=== PATIENT | female | born 1995 | race Caucasian/White ===

== ENCOUNTER 2017-03-03 02:24 | Emergency (ER) | payer OTHER ==
--- NOTE | ~2017-03-03 | ER ---
[facility] AGE[facility] 22 Y [address] ROOM: [place] [address] LOCATION: [facility] ADMIT DATE: 03/03/2017 ER/Outpatient Report DISCHARGE DATE: FAMILY PHYSICIAN: Walter Burnette MD ATTENDING PHYSICIAN: Walter Yanez Time of Arrival: 0223 hours. Time of Evaluation: 0223 hours. CHIEF COMPLAINT: Suicidal ideation. HISTORY OF PRESENT ILLNESS: The patient is a 22-year-old female, who presents to the emergency department today with a chief complaint of suicidal ideation. She reports she does not want to be here anymore. She reports she is having issues with the boyfriend. She attempted to cut her throat with a knife, but the knife was not sharp enough. She did take 2 Wellbutrin and 2 Vistaril as well as 1 Xanax to try to feel better. She did not take any more than that. She does report she feels depressed. Denies any visual or auditory hallucinations. The patient also did drink some alcohol. Denies any pain. PAST MEDICAL HISTORY: Anxiety, depression, prior suicidal attempt. PAST SURGICAL HISTORY: None. SOCIAL HISTORY: The patient smokes, occasionally drinks alcohol, denies any illicit drug use. ALLERGIES: NO KNOWN DRUG ALLERGIES. MEDICATIONS: Please see list. PRIMARY CARE DOCTOR: Dr. Walter Burnette. REVIEW OF SYSTEMS: All systems are reviewed by myself and are negative with the exception of those discussed in the HPI and past medical history. PHYSICAL EXAMINATION: [facility] AGE: 22 Y [address] ROOM: [place] [address] LOCATION: [facility] ADMIT DATE: 03/03/2017 ER/Outpatient Report DISCHARGE DATE: FAMILY PHYSICIAN: Walter Burnette MD ATTENDING PHYSICIAN: Walter Yanez VITAL SIGNS: Weight 91.8 kg, blood pressure 134/99, pulse 105, respiratory rate 24, temperature 98.3, oxygen saturation 98% on room air. GENERAL: The patient is a 22-year-old female, who appears stated age, is tearful, has poor eye contact. HEENT: Normocephalic, atraumatic. Pupils are equal, round, and reactive to light and accommodation. Extraocular motions are intact. Nares are patent bilaterally. Mucous membranes moist. NECK: Supple. The patient does have multiple superficial abrasions to the anterior neck. CARDIOVASCULAR: Tachycardic. No murmurs, rubs, or gallops. LUNGS: Hyperventilating. No wheezes, rales, or rhonchi. ABDOMEN: Soft, nontender, and nondistended. No rebound, rigidity, or guarding. MUSCULOSKELETAL: The patient moves all 4 extremities. SKIN: Warm and dry. There are no rashes or lesions noted. LABORATORY DATA AND X-RAYS: CBC is unremarkable. CMP is unremarkable except for potassium 3.3. LFTs are normal. Alcohol is 0.179. Acetaminophen is less than 2. Salicylate is less than 2.8. TSH is 4.95. Urinalysis shows 100 leukocyte esterase, 5-10 wbc's. Urine hCG is negative. IMPRESSION: 1. Suicidal ideation. 2. Medical clearance. 3. Initial visit. EMERGENCY DEPARTMENT COURSE: The patient was brought back to the examination room. Seen and evaluated by myself. Laboratory analysis and imaging are obtained as described above. The patient is suicidal. She is under [facility] custody by [facility]. The patient will be transferred to [facility] for further psychiatric care in stable condition. DO RACHEL GIBSON/tannerl /[id number] d: 03/03/17 0405 t: 03/05/17 0643, OUTPATIENT REPORT
[~2017-03-03 02:24] MED LIST: VISTARIL50 MG PO; WELLBUTRIN XL300 M1 PO; ZOLOFT50 M1 PO
[2017-03-03 02:46] LABS: BASOPHIL % 0.4 %; EOSINOPHIL # 0.3 K/uL (0.0-0.5); EOSINOPHIL % 3.1 %; HEMATOCRIT 42.6 % (33.0-46.0); HEMOGLOBIN 14.3 g/dL (11.0-15.0); IMMATURE GRANULOCYTE % 0.1 %; LYMPHOCYTE # 3.3 K/uL (0.8-4.0); LYMPHOCYTE % 35.7 %; MCH 31.2 pg (27.0-34.0); MCHC 33.6 gm/dL (32.0-36.5); MONOCYTE # 0.9 K/uL (0.0-1.0); MONOCYTE % 9.2 %; MPV 9.8 fl (9.4-12.4); NEUTROPHIL # (ANC) 4.8 K/uL (1.8-7.8); NEUTROPHIL % 51.5 %; NRBC % 0 /100WBC (0-0.00); PLATELET COUNT 185 K/uL (150-450); RBC 4.58 M/uL (3.50-5.00); RDW-CV 12.5 % (11.9-14.6); WBC 9.3 K/uL (4.0-11.0)
[2017-03-03 02:47] LABS: BILIRUBIN URINE NEGATIVE (NEGATIVE); BLOOD URINE NEGATIVE /UL (NEGATIVE); COLOR URINE COLORLESS (YELLOW); GLUCOSE URINE NEGATIVE (NEGATIVE); KETONE URINE NEGATIVE (NEGATIVE); LEUKOCYTES URINE 100 /UL (NEGATIVE); NITRITE URINE NEGATIVE (NEGATIVE); PROTEIN URINE NEGATIVE (NEGATIVE); TURBIDITY URINE CLEAR (CLEAR); UROBILINOGEN URINE NORMAL (NORMAL)
[2017-03-03 02:58] LABS: BACTERIA URINE FEW (NEGATIVE); RBC URINE NEGATIVE #/HPF (NEGATIVE)
[2017-03-03 03:10] LABS: ALBUMIN 3.7 gm/dL (3.5-5.0); ALK PHOS 44 IU/L (33-138); ALT 23 IU/L (12-78); ANION GAP 12.3 (10.0-19.0); AST 17 IU/L (10-40); BLOOD UREA NITROGEN 7 mg/dL (6-24); CALCIUM 8.2 mg/dL (8.5-10.5); CHLORIDE 113 mMol/L (96-110); CO2 23 mMol/L (22-32); CREATININE 0.7 mg/dL (0.5-1.1); POTASSIUM 3.3 mMol/L (3.7-5.1); SODIUM 145 mMol/L (135-145); TOTAL PROTEIN 7.5 g/dL (6.0-8.4)
[2017-03-03 03:13] LABS: TOTAL BILIRUBIN 0.2 mg/dL (0.0-1.5)
[2017-03-03 03:16] LABS: OPIATES NEGATIVE (NEGATIVE)
[2017-03-03 03:20] LABS: AMPHETAMINE NEGATIVE (NEGATIVE); BARBITURATE NEGATIVE (NEGATIVE); COCAINE NEGATIVE (NEGATIVE)
[2017-03-03] MEDS ORDERED: SPRINTEC 28 DA1 EACH PO (05:03)
[2017-03-04] MEDS ORDERED: TREXAN (REVIA)50 MG PO (13:02)
== END 2017-03-03 03:44 | disposition disaster alternative care site (69) ==
LOC: GACC 02:24
PROVIDERS: Emergency Medicine
DX: S10.91XA Abrasion of unspecified part of neck, initial encounter (principal); R45.851 Suicidal ideations; F17.200 Nicotine dependence, unspecified, uncomplicated; F32.9 Major depressive disorder, single episode, unspecified; F41.9 Anxiety disorder, unspecified; Z79.899 Other long term (current) drug therapy; X78.1XXA Intentional self-harm by knife, initial encounter
CPT/HCPCS: G0480